=== PATIENT | male | born 1980 | race Caucasian/White ===

== ENCOUNTER 2019-02-23 11:57 | Emergency (ER) | payer MEDICAID ==
[~2019-02-23] VITALS: Ht 170.2 cm; Wt 79.0 kg
[2019-02-23] MEDS ORDERED: KETOROLAC 30MG/ML VIAL IV STA (13:46)
[2019-02-23] MEDS ORDERED: SODIUM CHLORIDE 0.9% 1,000 ML IV ONE (13:46)
[2019-02-23] MEDS ORDERED: ONDANSETRON HCL 4MG/2ML INJ IV ONE (14:15)
[2019-02-23 14:17] LABS: BASOPHILS % 1.1 % (0.0-2.0); EOSINOPHILS % 0.1 % (0.0-5.0); HEMATOCRIT. 45.8 % (42.0-52.0); HEMOGLOBIN. 16.4 g/dL (14.0-18.0); LYMPHOCYTES % 52.4 % (20.0-50.0); MEAN CORPUSCULAR HEMOGLOBIN 31.2 pg (28.0-32.0); MEAN CORPUSCULAR VOLUME 87.3 fL (80.0-94.0); MEAN PLATELET VOLUME 6.9 fl (7.4-10.4); MONOCYTES % 7.2 % (2.0-8.0); NEUTROPHILS % 39.2 % (40.0-76.0); PLATELET 385 x1000/uL (130-400); RED BLOOD CELL COUNT 5.25 mill/uL (4.7-6.1); RED CELL DISTRIBUTION WIDTH 13.5 % (11.6-14.6)
[2019-02-23 14:25] LABS: PROTHROMBIN TIME 10.7 sec (9.6-11.0)
[2019-02-23 15:04] LABS: CLARITY URINE CLEAR (CLEAR); COLOR URINE YELLOW (YELLOW); KETONES URINE TRACE (NEGATIVE); LEUKOCYTE ESTERASE URINE NEGATIVE (NEGATIVE); NITRITE URINE NEGATIVE (NEGATIVE); OCCULT BLOOD URINE NEGATIVE (NEGATIVE); PH URINE 6.5 (4.5-8.0); PROTEIN URINE NEGATIVE (NEGATIVE); SPECIFIC GRAVITY URINE 1.017 (1.005-1.030)
[2019-02-23 15:08] LABS: CHLORIDE 100 mEq/L (98-107)
[2019-02-23 15:11] LABS: ETHANOL BLOOD 209 mg/dL
[2019-02-23 15:36] LABS: *AMPHETAMINES SCREEN URINE NEGATIVE (NEGATIVE); CANNABINOID URINE SCREEN NEGATIVE (NEGATIVE); METHADONE URINE SCREEN NEGATIVE (NEGATIVE); OPIATES URINE SCREEN NEGATIVE (NEGATIVE); PHENCYCLIDINE URINE SCREEN NEGATIVE (NEGATIVE)
[2019-02-23 15:37] LABS: *BARBITURATES SCREEN URINE NEGATIVE (NEGATIVE); *BENZODIAZEPINES SCREEN URINE NEGATIVE (NEGATIVE); *COCAINE SCREEN URINE NEGATIVE (NEGATIVE)
[2019-02-23] MEDS ORDERED: CHLORDIAZEPOXIDE 25MG CAPSULE PO ONE (17:15)
[2019-02-23 18:38] VITALS: BP 128/74
== END 2019-02-23 18:39 | disposition home or self-care (01) ==
LOC: ER 11:57
DX: F10.229 Alcohol dependence with intoxication, unspecified (principal); M79.10 Myalgia, unspecified site; R00.2 Palpitations; R51 Headache; Y90.7 Blood alcohol level of 200-239 mg/100 ml
CPT/HCPCS: 36415; 71045; 80053; 80305; 80320; 81003; 85025; 85610; 93005; 96374; 96375; 99284; J1885; J2405; J7030; G0480

== ENCOUNTER 2019-04-13 10:42 | Emergency (ER) | payer SELFPAY ==
[~2019-04-13] VITALS: Ht 175.3 cm; Wt 82.0 kg
[2019-04-13] MEDS ORDERED: IBUPROFEN 800MG TABLET PO ONE (12:15)
[2019-04-13 13:41] VITALS: BP 142/78
== END 2019-04-13 13:42 | disposition home or self-care (01) ==
LOC: ER 10:42
DX: M25.572 Pain in left ankle and joints of left foot (principal)
CPT/HCPCS: 73610; 99283